=== PATIENT | female | born 1945 | race Caucasian/White ===

== ENCOUNTER 2019-06-26 12:55 | Inpatient (IN) | payer BC ==
--- OUTSIDE RECORDS SUMMARY | 2019-06-26 13:09 | XMS REPORT | Continuity of Care Document ---
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 Onset: 06/20/2015 Presbyopia Walter River O.D. Onset: 06/20/2015 Regular astigmatism Walter River O.D. Onset: 06/20/2015 Hypermetropia Walter River O.D. Onset: 06/20/2015 Benign neoplasm of choroid Walter River O.D. Onset: 06/20/2015 Drusen of optic disc Walter River O.D. Onset: 06/20/2015 Social History Type Date Description Comments Sex Unknown ETOH Use Never used alcohol Tobacco Use Start: Unknown Patient has never smoked Smoking Status Reviewed: 05/27/19 Patient has never smoked Allergies, Adverse Reactions, Alerts Active Allergies Reaction Severity Comments Date NKDA 06/20/2015 Metals 06/20/2015 Medications Active Medications SIG Qnty Indications Ordering Provider Date Xarelto Take 1 Tablet By Unknown 20mg Tablets Mouth Every Day With Food Methotrexate Take 4 Tablets By Unknown 2.5mg Mouth Every Week Tablets Folic Acid Take 1 Tablet By Unknown 1mg Tablets Mouth Every Day Prevident 5000 Dry Unknown Mouth 1.1% Gel Immunizations Description No Information Available Vital Signs Date Vital Result Comment 05/27/2019 3:14pm Intraocular Pressure Right Eye 17 mmHg Intraocular Pressure Left Eye 17 mmHg 06/20/2015 1:54pm Intraocular Pressure Right Eye 14 mmHg Intraocular Pressure Left Eye 14 mmHg Results Description No Information Available Procedures Date Code Description Status 05/27/2019 29991 Oct, Optic Nerve Completed 05/27/2019 00639 Gonioscopy Completed 05/27/2019 09247 Refraction Completed 05/27/2019 32069 Eye Exam New Comprehensive Completed Medical Devices Description No Information Available Encounters Description No Information Available Assessments Date Code Description Provider 05/27/2019 H25.813 Combined forms of age-related cataract, Walter Jauregui, OD bilateral 05/27/2019 H40.033 Anatomical narrow angle, bilateral Walter Jauregui, OD 05/27/2019 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
--- OUTSIDE RECORDS SUMMARY | 2019-06-26 13:09 | XMS REPORT | Continuity of Care Document ---
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 Onset: 12/13/2014 Polymyalgia rheumatica Terrell Lombardo M.D. Onset: 12/13/2014 Pulmonary embolism Terrell Lombardo M.D. Onset: 12/13/2014 Social History Type Date Description Comments Sex Unknown ETOH Use Denies alcohol use Tobacco Use Start: Unknown End: Patient is a former smoker quit 2009 Unknown Smoking Status Reviewed: 05/18/19 Patient is a former smoker quit 2009 Exercise Type/Frequency Exercises sporadically Allergies, Adverse Reactions, Alerts Description No Known Drug Allergies Medications Active Medications SIG Qnty Indications Ordering Provider Date Methotrexate Take 4 Tablets 60tabs Z79.899 Lyndsay Flores, 06/19/2018 2.5mg By Mouth Every [employer] Tablets Week M06.09 Folic Acid Take 1 Tablet By 90tabs Z79.899 Lyndsay Flores, 01/09/2016 1mg Tablets Mouth Every Day [employer] Melatonin as directed Unknown 10mg Multi Vitamin Daily Daily (patient not Unknown taking at this time) Acetaminophen 1-2 by mouth twice Unknown 500mg a day as needed Capsules Turmeric Curcumin as directed Unknown Capsules Xarelto Take 1 Tablet By Unknown 20mg Tablets Mouth Every Day With Food CBD Oil cbd oil 1 or 2 Unknown drops topically daily for joint pain Zantac 150 Maximum 1 by mouth twice a Unknown Strength day 150mg Tablets History Medications Prednisone take 1 tablets 14tabs M06.09 Lyndsay Flores, 02/10/2019 - 5mg once daily once [employer] 05/17/2019 Tablets daily as needed Immunizations Description No Information Available Vital Signs Date Vital Result Comment 05/18/2019 10:07am Height 61.5 inches 5'1.50" Weight 177.38 lb Heart Rate 58 /min BP Systolic 139 mmHg BP Diastolic 65 mmHg Body Temperature 98.0 F O2 % BldC Oximetry 97 % BMI (Body Mass Index) 33.0 kg/m2 02/10/2019 12:56pm Height 61.5 inches 5'1.50" Weight 183.00 lb Heart Rate 72 /min BP Systolic Sitting 116 mmHg BP Diastolic Sitting 70 mmHg O2 % BldC Oximetry 97 % BMI (Body Mass Index) 34.0 kg/m2 Results Test Date Facility Test Result H/L Range Note CBC Auto 02/27/2019 [facility] White Blood 8.5 10^3/uL Normal 3.5-10.[address] [place] [address] [phone] Red Blood Count 4.09 10^6/uL Normal 3.70-4.87 Hemoglobin 13.3 g/dL Normal 12.0-16.0 Hematocrit 39 % Normal 35-47 Mean Corpuscular Volume 95 fL Normal 80-97 Mean Corpuscular Hemoglobin 32 pg High 27-31 Mean Corpuscular HGB Conc 34 g/dL Normal 31-36 Red Cell Distribution Width 15 % Normal 10-15 Platelet Count 544 10^3/uL High 150-450 Mean Platelet Volume 8.8 fL Normal 7.4-10.4 Abs Neutrophils 6.1 10^3/uL Normal 1.5-7.7 Abs Lymphocytes 1.8 10^3/uL Normal 1.0-4.8 Abs Monocytes 0.5 10^3/uL Normal 0-0.8 Abs Eosinophils 0.1 10^3/uL Normal 0-0.6 Abs Basophils 0.1 10^3/uL Normal 0-0.2 Abs Nucleated RBC 0.0 10^3/uL Granulocyte % 71.5 % Lymphocyte % 21.1 % Monocyte % 5.7 % Eosinophil % 0.6 % Basophil % 1.1 % Nucleated Red Blood Cells % 0.0 Comp Metabolic 02/27/2019 [facility] Sodium 139 mmol/L Normal 135-[address] [place] [address] [phone] Chloride 105 mmol/L Normal 101-111 Co2 Carbon Dioxide 25 mmol/L Normal 22-32 Glucose 90 mg/dL Normal 70-100 Blood Urea Nitrogen 23 mg/dL Normal 6-24 Creatinine 0.77 mg/dL Normal 0.51-0.95 BUN/Creatinine Ratio 29.9 High 8-20 Calcium 9.7 mg/dL Normal 8.6-10.3 Total Protein 6.7 g/dL Normal 6.4-8.9 Albumin 3.9 g/dL Normal 3.2-5.2 Globulin 2.8 g/dL Normal 2-4 Albumin/Globulin Ratio 1.4 Normal 1-3 Total Bilirubin 0.70 mg/dL Normal 0.2-1.0 Alkaline Phosphatase 71 U/L Normal 34-104 Alt 22 U/L Normal 7-52 Ast 18 U/L Normal 13-39 Egfr Non- 73.7 >60 Egfr 89.2 >60 1 Potassium 5.2 mmol/L High 3.5-5.0 Anion Gap 9 mmol/L Normal 2-11 Laboratory test 02/27/2019 [facility] Erythrocyte Sed 43 mm/Hr High 0-[address] [place] [address] [phone] C Reactive Protein 22.72 mg/L High <8.01 CBC Auto 02/10/2019 [facility] White Blood 6.6 10^3/uL Normal 3.5-10.[address] [place] [address] [phone] Red Blood Count 4.37 10^6/uL Normal 3.70-4.87 Hemoglobin 14.1 g/dL Normal 12.0-16.0 Hematocrit 41 % Normal 35-47 Mean Corpuscular Volume 94 fL Normal 80-97 Mean Corpuscular Hemoglobin 32 pg High 27-31 Mean Corpuscular HGB Conc 34 g/dL Normal 31-36 Red Cell Distribution Width 15 % Normal 10-15 Platelet Count 294 10^3/uL Normal 150-450 Mean Platelet Volume 9.0 fL Normal 7.4-10.4 Abs Neutrophils 5.1 10^3/uL Normal 1.5-7.7 Abs Lymphocytes 0.9 10^3/uL Low 1.0-4.8 Abs Monocytes 0.6 10^3/uL Normal 0-0.8 Abs Eosinophils 0.0 10^3/uL Normal 0-0.6 Abs Basophils 0.1 10^3/uL Normal 0-0.2 Abs Nucleated RBC 0.0 10^3/uL Granulocyte % 76.9 % Lymphocyte % 13.7 % Monocyte % 8.4 % Eosinophil % 0.1 % Basophil % 0.9 % Nucleated Red Blood Cells % 0.0 Laboratory test 02/10/2019 [facility] Creatine 37 U/L Normal 10-[address] Kinase(CK) [place] [address] [phone] Comp Metabolic 02/10/2019 [facility] Sodium 136 Normal 135- [address] mmol/[place] [address] [phone] Potassium 4.4 mmol/L Normal 3.5-5.0 Chloride 102 mmol/L Normal 101-111 Co2 Carbon Dioxide 25 mmol/L Normal 22-32 Anion Gap 9 mmol/L Normal 2-11 Glucose 114 mg/dL High 70-100 Blood Urea Nitrogen 24 mg/dL Normal 6-24 Creatinine 0.81 mg/dL Normal 0.51-0.95 BUN/Creatinine Ratio 29.6 High 8-20 Calcium 9.4 mg/dL Normal 8.6-10.3 Total Protein 6.7 g/dL Normal 6.4-8.9 Albumin 3.9 g/dL Normal 3.2-5.2 Globulin 2.8 g/dL Normal 2-4 Albumin/Globulin Ratio 1.4 Normal 1-3 Total Bilirubin 1.00 mg/dL Normal 0.2-1.0 Alkaline Phosphatase 74 U/L Normal 34-104 Alt 31 U/L Normal 7-52 Ast 36 U/L Normal 13-39 Egfr Non- 69.5 >60 Egfr 84.1 >60 2 Laboratory test 02/10/2019 [facility] Erythrocyte Sed 23 mm/Hr Normal 0-[address] [place] [address] [phone] C Reactive Protein 107.98 mg/L High <8.01 1 Because ethnic data is not always readily available, this report includes an eGFR for both -Americans and non- Americans. The National Kidney Disease Education Program (NKDEP) does not endorse the use of the MDRD equation for patients that are not between the ages of 18 and 70, are , have extremes of body size, muscle mass, or nutritional status, or are non- or non-. According to the National Kidney Foundation, irrespective of diagnosis, the stage of the disease is based on the level of kidney function: Stage Description GFR(mL/min/1.73 m(2)) 1 Kidney damage with normal or decreased GFR 90 2 Kidney damage with mild decrease in GFR 60-89 3 Moderate decrease in GFR 30-59 4 Severe decrease in GFR 15-29 5 Kidney failure <15 (or dialysis) 2 Because ethnic data is not always readily available, this report includes an eGFR for both -Americans and non- Americans. The National Kidney Disease Education Program (NKDEP) does not endorse the use of the MDRD equation for patients that are not between the ages of 18 and 70, are , have extremes of body size, muscle mass, or nutritional status, or are non- or non-. According to the National Kidney Foundation, irrespective of diagnosis, the stage of the disease is based on the level of kidney function: Stage Description GFR(mL/min/1.73 m(2)) 1 Kidney damage with normal or decreased GFR 90 2 Kidney damage with mild decrease in GFR 60-89 3 Moderate decrease in GFR 30-59 4 Severe decrease in GFR 15-29 5 Kidney failure <15 (or dialysis) Procedures Date Code Description Status 05/13/2018 82633591 Colonoscopy Completed 10/07/2017 367190456 Bone Mineral Density Test Completed Medical Devices Description No Information Available Encounters Type Date Location Provider Dx Diagnosis Office Visit 02/10/2019 Rheumatology Lyndsay Flores, M06.09 Rheumatoid 1:[facility] [employer] arthritis w/o rheumatoid factor, multiple sites M85.80 Oth disrd of bone density and structure, unspecified site M76.30 Iliotibial band syndrome, unspecified leg G89.4 Chronic pain syndrome 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 Assessments Date Code Description Provider 05/18/2019 M06.09 Rheumatoid arthritis without rheumatoid factor, Lyndsay Flores, [employer] multiple sit 05/18/2019 M25.561 Pain in right knee Zsofia Mark, [employer] 05/18/2019 M76.30 Iliotibial band syndrome, unspecified leg Zsofia Mark, [employer] 05/18/2019 M70.61 Trochanteric bursitis, right hip Zsofia Mark, [employer] 05/18/2019 M85.80 Other specified disorders of bone density and Mableofibranden Flores, [employer] structure, uns 05/18/2019 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 Mableofia Mark, [employer] 02/10/2019 M06.09 Rheumatoid arthritis without rheumatoid factor, Zsofia Mark, [employer] multiple sit 02/10/2019 M85.80 Other specified disorders of bone density and Zsofia Mark, [employer] structure, uns 02/10/2019 M76.30 Iliotibial band syndrome, unspecified leg Mableofia Mark, [employer] 02/10/2019 G89.4 Chronic pain syndrome Mableofia Mark, [employer] 02/10/2019 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05/18/2019 - GHISLAINE DuckworthPM06.09 Rheumatoid arthritis without rheumatoid factor, multiple sitComments:Will get labs today.Your arthritis seems to be symptomatically well controlled at this time.Continuewith present medication regimePlease call the office if you develop any sign or symptoms of infection or acute change in your health.Follow up:3 month labs today and oslbjN25.561 Pain in right kneeM76.30 Iliotibial band syndrome, unspecified legNew Therapy:Physical TherapyComments:Please start PT for thigh Iliotibial BandM70.61 Trochanteric bursitis, right hipM85.80 Other specified disorders of bone density and structure, unsComments:For your osteopenia: Supplements: Calcium: The National Osteoporosis Foundation recommends 1,000 milligrams (shortened as mg) per day for most adults and 1,200 mg per day for women over age 50 or men over age 70.Vitamin D. Get adequate amounts of vitamin D, which is important to help absorption of calcium from foods you eat. The recommended daily dose is 400 800 International Units ( called IU) for adults younger than age 50, and 800 1,000 IU for those age 50 and older. (These are the current guidelines from the National Osteoporosis Foundation.) The patient should also periodically have the level of vitamin D checked.Physical activity. 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
--- OUTSIDE RECORDS SUMMARY | 2019-06-26 13:09 | XMS REPORT | Continuity of Care Document ---
:1945 External Reference #:[id number] Author Name Walter River O.D. 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 Onset: 06/20/2015 Presbyopia Walter River O.D. Onset: 06/20/2015 Regular astigmatism Walter River O.D. Onset: 06/20/2015 Hypermetropia aWlter River O.D. Onset: 06/20/2015 Benign neoplasm of [...] Available Procedures Date Code Description Status 05/27/2019 88341 Oct, Optic Nerve Completed 05/27/2019 86844 Gonioscopy Completed 05/27/2019 44240 Refraction Completed 05/27/2019 05314 Eye Exam New Comprehensive Completed Medical Devices [...]
[2019-06-26 13:20] LABS: ABS Basophils 0.1 10^3/ul (0-0.2); ABS Eosinophils 0.1 10^3/ul (0-0.6); ABS Lymphocytes 1.2 10^3/ul (1.0-4.8); ABS Monocytes 0.5 10^3/ul (0-0.8); Eosinophil % 1.2 %; Hematocrit 41 % (35-47); Hemoglobin 13.6 g/dL (12.0-16.0); Lymphocyte % 13.8 %; Mean Corpuscular HGB Conc 33 g/dL (31-36); Mean Corpuscular Hemoglobin 32 pg (27-31); Mean Corpuscular Volume 96 fL (80-97); Mean Platelet Volume 8.4 fL (7.4-10.4); Platelet Count 511 10^3/uL (150-450); Red Cell Distribution Width 15 % (10-15)
[2019-06-26 13:31] LABS: INR 2.04 (0.82-1.09)
[2019-06-26 13:37] LABS: ALT 9 U/L (7-52); AST 13 U/L (13-39); Albumin 4.1 g/dL (3.2-5.2); Albumin/Globulin Ratio 1.5 (1-3); Alkaline Phosphatase 63 U/L (34-104); Anion Gap 7 mmol/L (2-11); BUN/Creatinine Ratio 28.9 (8-20); Blood Urea Nitrogen 24 mg/dL (6-24); CO2 Carbon Dioxide 27 mmol/L (22-32); Calcium 9.3 mg/dL (8.6-10.3); Chloride 105 mmol/L (101-111); EGFR African American 81.5 (>60); EGFR Non-African American 67.4 (>60); Globulin 2.7 g/dL (2-4); Glucose 93 mg/dL (70-100); Potassium 4.7 mmol/L (3.5-5.0); Sodium 139 mmol/L (135-145); Total Protein 6.8 g/dL (6.4-8.9)
[2019-06-26 13:46] LABS: Troponin I 0.06 ng/mL (<0.04)
[2019-06-26] MEDS ORDERED: Aspirin TAB* 325 MG PO ONE (14:32)
--- NOTE | 2019-06-26 15:19 | ED ---
Complex/Multi-Sys Presentation - HPI Summary HPI Summary: Patient is a 74 y/o F presenting to [facility] with complaints of chest pain, generalized weakness, and feeling near syncopal. She notes that she has been having episodes of chest pain with arm and jaw ache for the past month. She states that typical episodes last around 10-20 minutes. Patient states that on certain days she can have 7-8 episodes. Patient states that she was evaluated by PCP and claims that she was told that her issues were likely "reflux". However, today, 06/26/2019, the patient was walking around at work when she had onset of chest pain with generalized weakness and feeling near syncopal. She called PCP and was advised to come to ED for evaluation. Patient states that she had the chest pain still when she got to [facility], but states that the chest pain is no longer present while in ED room. PMHx of HTN, HLD, diabetes, CAD is denied. However, she endorses Hx of PE. FMHx of cardiac disease in father is noted. Patient is on Xarelto. Pt does not report any fever, chills, erythema of eyes, sore throat, SOB, cough, abdominal pain, N/V, dysuria, hematuria, myalgia , edema, rash, or dizziness. On triage, pain is rated 3/10, nothing is noted to aggravate/alleviate Sx. Home medications and allergies are reviewed. - History Of Current Complaint Chief Complaint: EDChestPainROMI Time Seen by Provider: 06/26/19 13:10 Hx Obtained From: Patient Onset/Duration: Resolved Timing: Intermittent, Lasting: Severity Currently: None Severity Initially: Mild Location: Pain At: - chest Aggravating Factor(s): nothing Alleviating Factor(s): nothing Associated Signs And Symptoms: Positive: Weakness - generalized, Syncope - near , Chest Pain, Other - positive - chest pain, generalized weakness, and feeling near syncopal; negative - fever, chills, erythema of eyes, sore throat, SOB, cough, abdominal pain, N/V, dysuria, hematuria, myalgia, edema, rash, or dizziness. Negative: Dizziness, SOB, Cough, Edema, Nausea, Vomiting, Fever - Allergies/Home Medications Allergies/Adverse Reactions: Allergies Allergy/AdvReac Type Severity Reaction Status Date / Time No Known Allergies Allergy Verified 05/13/18 14:20 PMH/Surg Hx/FS Hx/Imm Hx Endocrine/Hematology History: Denies: Hx Diabetes, Hx Thyroid Disease Cardiovascular History: Reports: Hx Rheumatic Fever Denies: Hx Hypertension, Hx Pacemaker/ICD Respiratory History: Reports: Hx Pulmonary Embolism Denies: Hx Asthma, Hx Chronic Obstructive Pulmonary Disease (COPD) GI History: Denies: Hx Ulcer History: Denies: Hx Renal Disease Musculoskeletal History: Reports: Hx Arthritis, Hx Osteoporosis Sensory History: Reports: Hx Contacts or Glasses Denies: Hx Hearing Aid Opthamlomology History: Reports: Hx Contacts or Glasses Neurological History: Reports: Hx Headaches - prednisone related Psychiatric History: Denies: Hx Panic Disorder - Cancer History Hx Chemotherapy: No Hx Radiation Therapy: No - Surgical History Surgery Procedure, Year, and Place: benign breast tumor removed 1963 Hx Anesthesia Reactions: No Infectious Disease History: No Infectious Disease History: Denies: Hx Clostridium Difficile, Hx Hepatitis, Hx Human Immunodeficiency Virus (HIV), Hx of Known/Suspected MRSA, Hx Shingles, Hx Tuberculosis, Hx Known/ Suspected VRE, Hx Known/Suspected VRSA, History Other Infectious Disease, Traveled Outside the [place] in Last 30 Days - Family History Known Family History: Positive: Cardiac Disease - Social History Alcohol Use: None Substance Use Type: Reports: None Substance Use Comment - Amount & Last Used: pain meds for back Smoking Status (MU): Former Smoker Type: Cigarettes Length of Time of Smoking/Using Tobacco: SMOKED 10 YEARS,QUIT FOR 10 RESTARTED FOR 10 YEARS ETC. Have You Smoked in the Last Year: No Review of Systems Positive: Fatigue - generalized weakness . Negative: Fever, Chills Negative: Erythema Negative: Sore Throat Positive: Chest Pain Negative: Shortness Of Breath, Cough Negative: Abdominal Pain, Vomiting, Nausea Negative: dysuria, hematuria Negative: Myalgia, Edema Negative: Rash Neurological: Other - negative - dizziness Positive: Syncope - near syncopal All Other Systems Reviewed And Are Negative: Yes Physical Exam - Summary Physical Exam Summary: Constitutional: Well-developed, Well-nourished, Alert. (-) Distressed Skin: Warm, Dry HENT: Normocephalic; Atraumatic Eyes: Conjunctiva normal Neck: Musculoskeletal ROM normal neck. (-) JVD, (-) Stridor, (-) Tracheal deviation Cardio: Rhythm regular, rate normal, Heart sounds normal; Intact distal pulses; The pedal pulses are 2+ and symmetric. Radial pulses are 2+ and symmetric. (-) Murmur Pulmonary/Chest wall: Effort normal. (-) Respiratory distress, (-) Wheezes, (-) Rales Abd: Soft, (-) tenderness, (-) Distension, (-) Guarding, (-) Rebound Musculoskeletal: (-) Edema Lymph: (-) Cervical adenopathy Neuro: Alert, Oriented x3 Psych: Mood and affect Normal Triage Information Reviewed: Yes Vital Signs On Initial Exam: Initial Vitals Temp Pulse Resp BP Pulse Ox 97.4 F 57 16 141/63 100 06/26/19 12:55 06/26/19 12:55 06/26/19 12:55 06/26/19 12:55 06/26/19 12:55 Vital Signs Reviewed: Yes Procedures - Sedation Patient Received Moderate/Deep Sedation with Procedure: No Diagnostics - Vital Signs Vital Signs Temp Pulse Resp BP Pulse Ox 06/26/19 12:55 97.4 F 57 16 141/63 100 - Laboratory Lab Results: Lab Results 06/26/19 06/26/19 06/26/19 Range/Units 13:09 13:09 13:09 WBC 9.0 (3.5-10.8) 10^3/uL RBC 4.30 (3.70-4.87) 10^6 /uL Hgb 13.6 (12.0-16.0) g/dL Hct 41 (35-47) % MCV 96 (80-97) fL MCH 32 H (27-31) pg MCHC 33 (31-36) g/dL RDW 15 (10-15) % Plt Count 511 H (150-450) 10^3/uL MPV 8.4 (7.4-10.4) fL Neut % (Auto) 78.2 % Lymph % (Auto) 13.8 % [place] % (Auto) 6.0 % Eos % (Auto) 1.2 % Baso % (Auto) 0.8 % Absolute Neuts (auto) 7.0 (1.5-7.7) 10^3/ul Absolute Lymphs (auto) 1.2 (1.0-4.8) 10^3/ul Absolute Monos (auto) 0.5 (0-0.8) 10^3/ul Absolute Eos (auto) 0.1 (0-0.6) 10^3/ul Absolute Basos (auto) 0.1 (0-0.2) 10^3/ul Absolute Nucleated RBC 0.0 10^3/ul Nucleated RBC % 0.0 INR (Anticoag Therapy) 2.04 H (0.82-1.09) Sodium 139 (135-145) mmol/L Potassium 4.7 (3.5-5.0) mmol/L Chloride 105 (101-111) mmol/L Carbon Dioxide 27 (22-32) mmol/L Anion Gap 7 (2-11) mmol/L BUN 24 (6-24) mg/dL Creatinine 0.83 (0.51-0.95) mg/dL Est GFR ( Amer) 81.5 (>60) Est GFR (Non-Af Amer) 67.4 (>60) BUN/Creatinine Ratio 28.9 H (8-20) Glucose 93 (70-100) mg/dL Calcium 9.3 (8.6-10.3) mg/dL Total Bilirubin 0.70 (0.2-1.0) mg/dL AST 13 (13-39) U/L ALT 9 (7-52) U/L Alkaline Phosphatase 63 (34-104) U/L Troponin I 0.06 H* (<0.04) ng/mL Total Protein 6.8 (6.4-8.9) g/dL Albumin 4.1 (3.2-5.2) g/dL Globulin 2.7 (2-4) g/dL Albumin/Globulin Ratio 1.5 (1-3) Result Diagrams: 06/26/19 13:09 06/26/19 13:09 Lab Statement: Any lab studies that have been ordered have been reviewed, and results considered in the medical decision making process. - EKG 1259 Cardiac Rate: Bradycardia - rate of 59 BPM EKG Rhythm: Sinus Bradycardia Summary of EKG Findings: EKG showed sinus bradycardia with rate of [address] elevations in inferior leads. This EKG was reviewed and interpreted by Dr. Mendes. 1530 Cardiac Rate: Bradycardia - rate of 50 BPM EKG Rhythm: Sinus Bradycardia Summary of EKG Findings: EKG showed sinus bradycardia with rate of 50 BPM, no STEMI. This EKG was reviewed and interpreted by Dr. Mendes. Complex Multi-Symp Course/Dx Course Of Treatment: Patient is a 74 y/o F presenting to [facility] with complaints of chest pain, generalized weakness, and feeling near syncopal. She notes that she has been having episodes of chest pain with arm and jaw ache for the past month. She states that typical episodes last around 10-20 minutes. Patient states that on certain days she can have 7-8 episodes. However, today, 06/26/2019 , the patient was walking around at work when she had onset of chest pain with generalized weakness and feeling near syncopal. Patient states that she had the chest pain still when she got to , but states that the chest pain is no longer present while in ED room. Physical exam is unremarkable. First EKG showed sinus bradycardia with rate of [address] elevations in inferior leads. Bloodwork was obtained. First trop was 0.06. MCH 32, Plt count 511, INR 2.04, BUN/creatinine ratio 28.9. During ED course, patient received 325 mg PO. Second EKG showed sinus bradycardia with rate of 50 BPM, no STEMI. Patient's case was discussed with Dr. Suárez, Dr. Suárez accepts for admission. - Diagnoses Provider Diagnoses: NSTEMI (non-ST elevated myocardial infarction) - Physician Notifications Discussed Care Of Patient With: Sera Suárez Time Discussed With Above Provider: 15:34 Instructed by Provider To: Other - Patient's case was discussed with Dr. Suárez , Dr. Suárez accepts for admission. - Critical Care Time Critical Care Time: 30-74 min - 45 minutes CCT Discharge ED - Sign-Out/Discharge Documenting (check all that apply): Patient Departure - admit - Discharge Plan Condition: Stable Disposition: ADMITTED TO [facility] Referrals: Greta Ponce MD [Primary Care Provider] - - Attestation Statements Document Initiated by Scribe: Yes Documenting Scribe: JOY JHAVERI Provider For Whom Scribe is Documenting (Include Credential): VANESA MENDES MD Scribe Attestation: JOY De La Rosa, scribed for VNAESA MENDES MD on 06/26/19 at 1743. Status of Scribe Document: Ready
--- NOTE | 2019-06-26 16:53 | CONSULT ---
Subjective Date of Service: 06/26/19 Interval History: Date of admission and consult 06/26/2019 PCP: Dr. Sarmiento CC: Chest discomfort Reason for consult: Unstable angina HPI: Anahi Contreras is a 74 year old woman who for last month has been having central chest discomfort radiating across both shoulders associated with b/l jaw ache. It usually lasts about 20 minutes, sometimes at rest, often associated this with stress. Today walked across street with friend, got to store, developed same symptoms but worse and was lightheaded and diaphoretic. Symptoms resolved without intervention. Drove self to ER asymptomatic. Had chest discomfort for less than 20 minutes while here with inferior < [address] elevation of the inferior leadss. Now totally asymptomatic. Has been under a lot of stress recently. No kidney issues, no iodine allergy, no bleeding, anemia , PUD or transfusions. SHe is currently entirely asymptomatic. No syncope. 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 First 2008 unprovoked 6 months coumadin, then recurred in 2010 now on xarelto Seronegative RA TIA 04/2015 ALLERGIES: No known drug allergies. FAMILY HISTORY: The patient's father at age 30 of cardiac complications of rheumatic fever. SOCIAL HISTORY: The patient was a smoker from age 16 until 64 up to 2 packs a day. She states that since she had her PE, she quit smoking. She denies alcohol or drug use. She works at [employer]. Surrogate decision maker is her , Riki Contreras, phone number is [phone]. Medications Active Medications: Aspirin (Aspirin Ec Tab*) 81 mg PO DAILY [facility] Rivaroxaban (Xarelto(*)) 20 mg PO DAILY [facility] Home Medications: Acetaminophen [Acetaminophen Extra Strength] 1,000 mg PO BID PRN 04/14/18 [ History Confirmed 06/26/19] Folic Acid TAB* [Folvite TAB*] 1 mg PO DAILY 04/14/18 [History Confirmed ] Methotrexate TAB* 15 mg PO WEEKLY 04/14/18 [History Confirmed 06/26/19] Rivaroxaban TAB(*) [Xarelto 20 mg] 20 mg PO DAILY 04/14/18 [History Confirmed ] Review of Systems - Measurements Intake and Output: Intake and Output Last 24 Hours 06/24/19 06/25/19 06/26/19/02/19 06:59 06:59 06:59 06:59 Weight 178 lb - Review of Systems Constitutional Symptoms: Negative: Weight Gain, Weight Loss, Weakness, Fever, Night Sweats Dermatology: Negative: Rash, Skin Lesions HEENT: Negative: Change in Hearing, Vertigo Eyes: Negative: Change in Vision, Double Vision Thyroid: Negative: Weight Loss, Weight Gain Pulmonary: Negative: Respiratory Distress, Exercise Intolerance Cardiology: Positive: Chest Pain, Faintness Negative: Palpitations, Edema, Syncope, Claudication, Paroxysmal Nocturnal Dyspnea, Orthopnea Gastroenterology: Negative: Blood in Stools, Haematemesis, Melena Genital - Urinary: Negative: Dysuria, Hematuria Musculoskeletal: Negative: Joint Pain, Joint Stiffness Endocrinology: Negative: Polydipsia, Polyuria Hematologic/Lymphatic: Positive: Use of Anticoagulant Negative: Use of Antiplatelet Drugs Neurology: Negative: Hx of Stroke\TIA, Hx Seizures Psychiatry: Negative: Unusual Anxiety, Suicidal Ideation Allergic/Immunologic: Negative: Hx HIV, Immunocompromise Review of Systems Statement: All other review of systems negative, unless stated above. Objective Vital Signs: Temp Pulse Resp BP Pulse Ox 97.4 F 57 16 141/63 100 06/26/19 12:55 06/26/19 12:55 06/26/19 12:55 06/26/19 12:55 06/26/19 12:55 Appearance: nad, pleasant Ears/Nose/Mouth/Throat: Clear Oropharnyx, Mucous Membranes Moist Neck: NL Appearance and Movements; NL JVP, Trachea Midline Respiratory: Symmetrical Chest Expansion and Respiratory Effort, Clear to Auscultation Cardiovascular: NL Sounds; No Murmurs; No JVD, RRR, No Edema Abdominal: NL Sounds; No Tenderness; No Distention Extremities: No Edema Skin: No Rash or Ulcers Neurological: Alert and Oriented x 3 Laboratory Results: 06/26/19 13:09 06/26/19 13:09 INR (Anticoag Therapy) 2.04 (0.82-1.09) H 06/26/19 13:09 Total Bilirubin 0.70 mg/dL (0.2-1.0) 06/26/19 13:09 AST 13 U/L (13-39) 06/26/19 13:09 ALT 9 U/L (7-52) 06/26/19 13:09 Alkaline Phosphatase 63 U/L (34-104) 06/26/19 13:09 Total Protein 6.8 g/dL (6.4-8.9) 06/26/19 13:09 Albumin 4.1 g/dL (3.2-5.2) 06/26/19 13:09 Globulin 2.7 g/dL (2-4) 06/26/19 13:09 Albumin/Globulin Ratio 1.5 (1-3) 06/26/19 13:09 06/26/19 06/26/19 13:09 16:12 Troponin I 0.06 H* 0.06H* Diagnostic Imaging: cxr interpretation pending, reviewed did not appreciate acute pathology EKG Data: ekg today nsr 60 bpm, inferior < [address] elevation wtih st depression v2/v3. On repeat ekg st changes essentially normalized with inferior t wave changes. Findings are new since 04/26/2019 Assessment/Plan 74 year old woman admitted with unstable angina, now pain free without hemodynamic instability, arrhythmias, recurrent angina or CHF. Cause with age and tobacco use history is most likely unstable plaque of atherosclerotic coronary artery disease although I think other pathology with this presentation is possible such as vasospasm on non-obstructive plaque or even stress cardiomyopathy is possible. Cardiac catheterization with intent for revascularization recommended. Risks, benefits and alternatives discussed and patient wishes to proceed. - Check echo - Last dose xarelto this AM. Hold 36 hours and start lovenox tomorrow evening therapeutic (ordered) - Start plavix 600 mg po daily and 75 mg po daily tomorrow (ordered) - Continue aspirin 81 mg po daily for now - Start lipitor 80 mg po daily - Start isordil 10 mg po qid - Above ordered - Would use PRN SL NTG for recurrent symptoms - As long as patient remains clinically stable will allow 48 hour xarelto washout and plan for cardiac catheterization Saturday06/29/2019 (Discussed with Dr. Titus). Taking into consideration [place] AF-PCI (in which most patients received plavix) and [facility] Choice study, if PCI is ultimately performed I think xarelto 15 mg po daily with plavix 75 mg po daily and as short of aspirin course as possible would be reasonable. Thank you for allowing me to participate in the cardiovascular care of this patient. Please do not hesitate to contact me with questions or concerns.
[2019-06-26] MEDS ORDERED: Isosorbide Mononitrate ER TAB* 30 MG PO SCH (17:00)
[2019-06-26] MEDS ORDERED: Clopidogrel TAB* 300 MG PO ONE (17:10)
[2019-06-26 17:18] LABS: Troponin I 0.06 ng/mL (<0.04)
[2019-06-26] MEDS: Isosorbide Dinitrate TAB* 10 MG PO SCH ×2 (18:12→21:29)
--- NOTE | 2019-06-26 18:53 | HP ---
CC: Dr. Greta Sarmiento; Dr. Dilan Walker HISTORY AND PHYSICAL: DATE OF ADMISSION: 06/26/19 PRIMARY CARE PROVIDER: Dr. Greta Sarmiento. CONSULTING CHAIN BUILDER: Dr. Dilan Walker. CHIEF COMPLAINT: Chest pain. HISTORY OF PRESENT ILLNESS: Ms. Contreras is a 74-year-old female with a past medical history of rheu matoid arthritis, recurrent pulmonary embolism, who presents to the emergency room with complaints of chest pain. 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 She states that those are not related to exercise and she would usually feel them during moments o f stress. She states today she walked from her office to [facility] and during the walk, she developed retroster nal chest pain, pressure-like, radiating to her jaw associated with mild shortness of breath and diap horesis. She continued to walk and felt like she was going to pass out. She sat down, rested and th en contacted her primary care provider's office that recommended she come to the emergency room for f urther evaluation. She states that while she was sitting and resting, she became diaphoretic, but at the time of my evaluation in the emergency room, she states that she is feeling well. She denies nausea, vomiting, diarrhea, or urinary complaints. She describes brief episodes of palpit ations that she also associated with stress. During my interview, the patient had frequent PVCs and she was not aware. PAST MEDICAL HISTORY: 1. Rheumatoid arthritis. The patient was initially diagnosed with polymyalgia rheumatica and treate d with prednisone, but as her symptoms progressed, she was later on diagnosed with seronegative rheum atoid arthritis and being stable on methotrexate. 2. GERD. 3. History of pulmonary embolism in 2008. The patient had a pulmonary embolism in 2008. She states it was unprovoked and no etiology was found. She was treated with warfarin for 6 months and when e medication was discontinued she had another episode of pulmonary embolism. As per Rheumatology not e, the patient had negative antiphospholipid and lupus anticoagulant and she is now being treated wit h Xarelto. MEDICATION LIST: 1. Acetaminophen 1000 mg p.o. b.i.d. as needed for pain. 2. Folic acid 1 mg p.o. daily. 3. Methotrexate 15 mg p.o. weekly. 4. Rivaroxaban 20 mg p.o. daily. ALLERGIES: No known drug allergies. FAMILY HISTORY: The patient's father at age 30 of cardiac complications of rheumatic fever. SOCIAL HISTORY: The patient was a smoker from age 16 until 64 up to 2 packs a day. She states that s bertha she had her PE, she quit smoking. She denies alcohol or drug use. She works at [employer]. Trey gomez decision maker is her , Riki Contreras, phone number is [phone]. PHYSICAL EXAMINATION GENERAL: The patient is a pleasant, elderly lady, sitting up in the ED stretcher, in no acute distre ss. VITAL SIGNS: Temperature 97.4, heart rate is 57, respiratory rate is 16, oxygen saturation is 100% o n room air, blood pressure is 141/63. HEENT: Pupils are equal. Moist mucous membranes. CHEST: Breath sounds present bilaterally with no added sounds. CVS: Normal S1, S2. Regular rate and rhythm. ABDOMEN: Soft, nontender, nondistended. EXTREMITIES: No edema. NEURO: She is alert and oriented x3. Able to move all 4 extremities. DIAGNOSTIC STUDIES/LAB DATA: The patient had a CBC that showed a WBC of 9.0, hemoglobin of 13.6, he matocrit of 41, platelets of 411 with 78% neutrophils. INR is 2.04. Chemistry showed a sodium of 13 9, potassium of 4.7, chloride of 105, bicarb of 27, BUN of 24, creatinine of 0.83, glucose of 93, wali cium is 9.3. LFTs are normal. First troponin is 0.06. No chest x-ray was done in the emergency room. EKG done on 06/26/19 at 12:55 p.m. shows sinus bradycardia at 59 beats per minute. There are minimal ST elevations in II, III and aVF and those are resolved on her followup EKG done at 1517. She has T- wave inversions in III and aVF, flat T-waves in II. Those are new when compared to her prior EKG fro April 2015. ASSESSMENT AND PLAN: Ms. Contreras is a 74-year-old female with a past medical history of rheumatoid arthritis, recurrent pulmonary embolism who presents to the emergency room with complaints of exertio nal chest pain radiating to her jaw associated with near syncope and diaphoresis, who will be admitte d for possible acute coronary syndrome. 1. Possible acute coronary syndrome. The patient's history of jaw pain over the past month is atypi wali, but the episode that she had today is concerning as it happened with exertion and was associated with near syncope and diaphoresis. She also has subtle EKG changes of the inferior wall and a minim ally elevated initial troponin. The plan is to have her admitted to the telemetry floor. We are kvng ruano to check serial troponins and she will be continued on aspirin. I am going to order an echocardio gram and a cardiology consultation was requested with Dr. Walker to decide on further management. I am going to add atorvastatin and check a fasting lipid profile. Her heart rate is already in the mid 50s, so I will not give her a beta-grecia. Further management will depend on Cardiology's recommen dations. 2. History of pulmonary embolism. We will continue her Xarelto for now, but depending on how her en zymes trend, we may need to discontinue Xarelto and give her heparin. 3. Rheumatoid arthritis. Her methotrexate is on hold for now. 4. DVT prophylaxis: The patient has a score of 5 on the DVT Prophylaxis Risk Assessment Guide and s he will be continued on Xarelto. 5. Code status is full. TIME SPENT: Approximately 60 minutes was spent with the patient's interview , medical records review, physical examination to complete this admission, more than half this time w as spent [id number] with the patient and coordination of care. [id number]/[facility] #: [id number]
[2019-06-26 19:46] LABS: Troponin I 0.06 ng/mL (<0.04)
[2019-06-26] MEDS: Atorvastatin* 80 MG TAB PO SCH (21:29)
--- NOTE | 2019-06-26 21:33 | PN ---
Hospitalist Progress Note Date of Service: 06/26/19 Unable to open CxR remotely. Will request night hospitalist look at the film.
[2019-06-26] MEDS: Melatonin 3 MG TAB PO PRN (23:34)
[2019-06-27 06:44] LABS: HDL Cholesterol 67.8 mg/dL
[2019-06-27] MEDS ORDERED: Rivaroxaban TAB(*) 20 MG TAB PO SCH (09:00)
[2019-06-27] MEDS: Clopidogrel TAB* 75 MG PO SCH (10:24)
[2019-06-27] MEDS: Aspirin EC TAB* 81 MG TAB.EC PO SCH (10:24)
[2019-06-27] MEDS: Isosorbide Dinitrate TAB* 10 MG PO SCH ×4 (10:24→22:01)
--- NOTE | 2019-06-27 12:49 | PN ---
Subjective Date of Service: 06/27/19 - CC: anginal pain Interval History: Camilo Cherry is a 74 year old woman with a 1 month hx chest discomfort radiating across both shoulders associated with b/l jaw ache brought on by emotional stress. The day of admission she additionally had a near syncopal event (walking and angina at the time). Overnight no recurrent discomfort. No c/o now. Medications Active Medications: Acetaminophen (Tylenol Tab*) 650 mg PO Q6H PRN PRN Reason: MILD PAIN or TEMP > 100.4 Aspirin (Aspirin Ec Tab*) 81 mg PO DAILY [facility] Last Admin: 06/27/19 10:24 Dose: 81 mg Atorvastatin Calcium (Lipitor*) 80 mg PO 2100 [facility] Last Admin: 06/26/19 21:29 Dose: 80 mg Clopidogrel Bisulfate (Plavix Tab*) 75 mg PO DAILY [facility] Last Admin: 06/27/19 10:24 Dose: 75 mg Enoxaparin Sodium (Lovenox(*)) 80 mg SUBCUT Q12H [facility] Isosorbide Dinitrate (Isordil Tab*) 10 mg PO QID [facility] Last Admin: 06/27/19 10:24 Dose: 10 mg Melatonin (Melatonin) 9 mg PO DAILY PRN PRN Reason: SLEEP Last Admin: 06/26/19 23:34 Dose: 9 mg Objective Vital Signs: Temp Pulse Resp BP Pulse Ox 97.5 F 56 16 141/53 95 06/27/19 07:15 06/27/19 07:15 06/27/19 08:00 06/27/19 07:15 06/27/19 07:15 Vital Signs - 12 hr Temp Pulse Resp BP Pulse Ox 06/27/19 08:00 16 06/27/19 07:15 97.5 F 56 16 141/53 95 06/27/19 03:15 97.6 F 56 16 150/53 97 Oxygen Devices in Use Now: None Appearance: nad, pleasant, lying in bed, quite overweight. Eyes: No Scleral Icterus, PERRLA Ears/Nose/Mouth/Throat: Clear Oropharnyx, Mucous Membranes Moist Neck: NL Appearance and Movements; NL JVP, Trachea Midline Respiratory: Symmetrical Chest Expansion and Respiratory Effort, Clear to Auscultation Cardiovascular: NL Sounds; No Murmurs; No JVD, RRR, No Edema Abdominal: NL Sounds; No Tenderness; No Distention Extremities: No Edema Skin: No Rash or Ulcers Neurological: Alert and Oriented x 3, NL Muscle Strength and Tone Lines/Tubes/Other Access: Clean, Dry and Intact Peripheral IV Laboratory Results: 06/26/19 13:09 06/26/19 13:09 INR (Anticoag Therapy) 2.04 (0.82-1.09) H 06/26/19 13:09 Total Bilirubin 0.70 mg/dL (0.2-1.0) 06/26/19 13:09 AST 13 U/L (13-39) 06/26/19 13:09 ALT 9 U/L (7-52) 06/26/19 13:09 Alkaline Phosphatase 63 U/L (34-104) 06/26/19 13:09 Total Protein 6.8 g/dL (6.4-8.9) 06/26/19 13:09 Albumin 4.1 g/dL (3.2-5.2) 06/26/19 13:09 Globulin 2.7 g/dL (2-4) 06/26/19 13:09 Albumin/Globulin Ratio 1.5 (1-3) 06/26/19 13:09 Triglycerides 72 mg/dL 06/27/19 05:56 Cholesterol 184 mg/dL 06/27/19 05:56 LDL Cholesterol 102 mg/dL 06/27/19 05:56 HDL Cholesterol 67.8 mg/dL 06/27/19 05:56 06/26/19 06/26/19 06/26/19 13:09 16:12 18:59 Troponin I 0.06 H* 0.06 H* 0.06 H* Diagnostic Imaging: Patient Name: CAMILO CHERRY Medical Record#: [id number] Ordering Physician: Sera Gross MD Acct.#: [id number] : 1945 Age: 74 Sex: F Location: [address] [place] [address]/TELEMETRY Exam Date: 06/26/191699 ADM Status: ADM IN Order Information: CHEST AP OR PORT Accession Number: [id number] CPT: 19484 Indication: Chest pain. Comparison: April 26, 2015 Technique: Upright AP 2006 hours Report: No focal pulmonary lesion, compelling alveolar consolidation, pleural effusion, pneumothorax. Negative for cardiomegaly. Unremarkable central pulmonary vasculature. Mildly tortuous thoracic aorta. IMPRESSION: #. No evidence for acute intrathoracic disease. <Electronically signed by Jose A Fiore MD in OV> 06/27/19830 Dictated By: Jose A Fiore MD Dictated Date/Time: 06/27/19828 Transcribed Date/Time: 06/27/19828 EKG Data: ekg today nsr 60 bpm, inferior < [address] elevation wtih st depression v2/v3. On repeat ekg st changes essentially normalized with inferior t wave changes. Findings are new since 04/26/2019 Assessment/Plan 74 year old woman admitted with unstable angina, ACS stabilized with medical management. On Xarelto for PE hx, negative procoagulant work up in past by heme per patient. Comorbidities of RA, obese, distant smoking. On for echo in AM Saturday Will schedule for Cath Saturday. Continue with lovenox while Xarelto washes out. Continue Plavix, ASA Continue with Statin for mild dyslipidemia w/ACS. Continue Isordil for vasodilation. I am adding ACEI for HTN. Cause with age and tobacco use history is most likely unstable plaque of atherosclerotic coronary artery disease although I think other pathology with this presentation is possible such as vasospasm on non-obstructive plaque or even stress cardiomyopathy is possible. Cardiac catheterization with intent for revascularization recommended. Risks, benefits and alternatives discussed and patient wishes to proceed. Agree with Dr Walker's recommendation: if PCI is ultimately performed I think xarelto 15 mg po daily with plavix 75 mg po daily and as short of aspirin course as possible would be reasonable.
[2019-06-27] MEDS: Acetaminophen TAB* 325 MG PO PRN ×2 (13:06→22:00)
--- NOTE | 2019-06-27 15:14 | PN ---
Subjective Date of Service: 06/27/19 Interval History: HOSPITALIST PROGRESS NOTE Patient seen and examined at bedside. Care reviewed and d/w Harshad Johnson RN. She feels well today, no further episodes of chest pain. Family History: Unchanged from Admission Social History: Unchanged from Admission Past Medical History: Unchanged from Admission Objective Active Medications: Acetaminophen (Tylenol Tab*) 650 mg PO Q6H PRN PRN Reason: MILD PAIN or TEMP > 100.4 Last Admin: 06/27/19 13:06 Dose: 650 mg Aspirin (Aspirin Ec Tab*) 81 mg PO DAILY [facility] Last Admin: 06/27/19 10:24 Dose: 81 mg Atorvastatin Calcium (Lipitor*) 80 mg PO 2100 [facility] Last Admin: 06/26/19 21:29 Dose: 80 mg Clopidogrel Bisulfate (Plavix Tab*) 75 mg PO DAILY [facility] Last Admin: 06/27/19 10:24 Dose: 75 mg Enoxaparin Sodium (Lovenox(*)) 80 mg SUBCUT Q12H [facility] Isosorbide Dinitrate (Isordil Tab*) 10 mg PO QID [facility] Last Admin: 06/27/19 13:06 Dose: 10 mg Lisinopril (Prinivil Tab*) 5 mg PO DAILY [facility] Melatonin (Melatonin) 9 mg PO DAILY PRN PRN Reason: SLEEP Last Admin: 06/26/19 23:34 Dose: 9 mg Vital Signs - 8 hr 06/27/19 06/27/19 07:15 08:00 Temperature 97.5 F Pulse Rate 56 Respiratory 16 16 Rate Blood Pressure 141/53 (mmHg) O2 Sat by Pulse 95 Oximetry Oxygen Devices in Use Now: None Appearance: Pleasant elderly lady lying in bed in [facility]. Eyes: No Scleral Icterus Ears/Nose/Mouth/Throat: Mucous Membranes Moist Neck: Trachea Midline Respiratory: Symmetrical Chest Expansion and Respiratory Effort, Clear to Auscultation Cardiovascular: NL Sounds; No Murmurs; No JVD, RRR Neurological: Alert and Oriented x 3, NL Muscle Strength and Tone Result Diagrams: 06/26/19 13:09 06/26/19 13:09 Assess/Plan/Problems-Billing Assessment: Mrs Contreras is a 74yo F with PMH of RA, GERD, recurrent PE, who presented to ED with c/o exertional chest pain, near syncope, diaphoresis, found to have ACS. - Patient Problems (1) ACS (acute coronary syndrome) Comment: - Cardiology consult appreciated. - Echocardiogram. - Continue Aspirin, Plavix, Lovenox, Isordil, and Lisinopril. (2) Hx pulmonary embolism Comment: - Continue Lovenox. - If stent needed, plan to treat with Xarelto 15mg plus DAPT. (3) Rheumatoid arthritis Comment: - Resume MTX on discharge. (4) DVT prophylaxis Comment: - Lovenox. (5) Full code status Status and Disposition: Inpatient.
[2019-06-27] MEDS: Atorvastatin* 80 MG TAB PO SCH (21:20)
[2019-06-27] MEDS: Enoxaparin(*) 80 MG/0.8 ML SYR SUBCUT SCH (21:20)
[2019-06-27] MEDS: Lisinopril TAB* 5 MG PO SCH (22:01)
[2019-06-27] MEDS: Melatonin 3 MG TAB PO PRN (22:01)
[2019-06-28] MEDS: Isosorbide Dinitrate TAB* 10 MG PO SCH ×4 (08:28→20:43)
[2019-06-28] MEDS: Lisinopril TAB* 5 MG PO SCH (08:28)
[2019-06-28] MEDS: Clopidogrel TAB* 75 MG PO SCH (08:28)
[2019-06-28] MEDS: Enoxaparin(*) 80 MG/0.8 ML SYR SUBCUT SCH ×2 (08:28→20:43)
[2019-06-28] MEDS: Aspirin EC TAB* 81 MG TAB.EC PO SCH (08:28)
[2019-06-28] MEDS ORDERED: Temazepam CAP* 15 MG PO PRN (10:21)
--- NOTE | 2019-06-28 13:20 | PN ---
Subjective Date of Service: 06/28/19 Interval History: HOSPITALIST PROGRESS NOTE Patient seen and examined at bedside. Care reviewed and d/w Harshad Johnson RN. She had a brief (a few seconds) episode of chest pain, similar to her prior ones. She associates it with anxiety related to her cardiac cath tomorrow. Denies dyspnea or other complaints. Family History: Unchanged from Admission Social History: Unchanged from Admission Past Medical History: Unchanged from Admission Objective Active Medications: Acetaminophen (Tylenol Tab*) 650 mg PO Q6H PRN PRN Reason: MILD PAIN or TEMP > 100.4 Last Admin: 06/27/19 22:00 Dose: 650 mg Aspirin (Aspirin Ec Tab*) 81 mg PO DAILY [facility] Last Admin: 06/28/19 08:28 Dose: 81 mg Atorvastatin Calcium (Lipitor*) 80 mg PO 2100 [facility] Last Admin: 06/27/19 21:20 Dose: 80 mg Clopidogrel Bisulfate (Plavix Tab*) 75 mg PO DAILY [facility] Last Admin: 06/28/19 08:28 Dose: 75 mg Enoxaparin Sodium (Lovenox(*)) 80 mg SUBCUT Q12H [facility] Last Admin: 06/28/19 08:28 Dose: 80 mg Isosorbide Dinitrate (Isordil Tab*) 10 mg PO QID [facility] Last Admin: 06/28/19 08:28 Dose: 10 mg Lisinopril (Prinivil Tab*) 5 mg PO DAILY [facility] Last Admin: 06/28/19 08:28 Dose: 5 mg Melatonin (Melatonin) 9 mg PO DAILY PRN PRN Reason: SLEEP Last Admin: 06/27/19 22:01 Dose: 9 mg Temazepam (Restoril Cap*) 15 mg PO BEDTIME PRN PRN Reason: INSOMNIA Vital Signs - 8 hr 06/28/19 06/28/19 07:15 07:56 Temperature 97.6 F Pulse Rate 52 Respiratory 16 18 Rate Blood Pressure 143/54 (mmHg) O2 Sat by Pulse 98 Oximetry Oxygen Devices in Use Now: None Appearance: Pleasant elderly lady sitting up in bed in NAD. Eyes: No Scleral Icterus Ears/Nose/Mouth/Throat: Mucous Membranes Moist Neck: Trachea Midline Respiratory: Symmetrical Chest Expansion and Respiratory Effort, Clear to Auscultation Cardiovascular: RRR - Normal S1 and S2 Neurological: Alert and Oriented x 3, NL Muscle Strength and Tone Result Diagrams: 06/26/19 13:09 06/26/19 13:09 Assess/Plan/Problems-Billing Assessment: Mrs Contreras is a 74yo F with PMH of RA, GERD, recurrent PE, who presented to ED with c/o exertional chest pain, near syncope, diaphoresis, found to have ACS. - Patient Problems (1) ACS (acute coronary syndrome) Comment: - Cardiology consult appreciated. - Awaiting echocardiogram. - Continue Aspirin, Plavix, Lovenox, Isordil, and Lisinopril. - Plan for cardiac cath in AM. (2) Hx pulmonary embolism Comment: - Continue Lovenox. - If stent needed, plan to treat with Xarelto 15mg plus DAPT. (3) Rheumatoid arthritis Comment: - Resume MTX on discharge. (4) DVT prophylaxis Comment: - Lovenox. (5) Full code status Status and Disposition: Inpatient.
[2019-06-28] MEDS: Acetaminophen TAB* 325 MG PO PRN (14:43)
--- NOTE | 2019-06-28 17:40 | PN ---
Subjective Date of Service: 06/28/19 - CC: CP Interval History: Camilo Cherry is a 74 year old woman with a 1 month hx chest discomfort radiating across both shoulders associated with b/l jaw ache brought on by emotional stress. The day of admission she additionally had a near syncopal event (walking and angina at the time). Recurrent chest and neck discomfort this AM with some stress regarding upcoming testing. No c/o at the time of my visit. Medications Active Medications: Acetaminophen (Tylenol Tab*) 650 mg PO Q6H PRN PRN Reason: MILD PAIN or TEMP > 100.4 Last Admin: 06/28/19 14:43 Dose: 650 mg Aspirin (Aspirin Ec Tab*) 81 mg PO DAILY [facility] Last Admin: 06/28/19 08:28 Dose: 81 mg Atorvastatin Calcium (Lipitor*) 80 mg PO 2100 [facility] Last Admin: 06/27/19 21:20 Dose: 80 mg Clopidogrel Bisulfate (Plavix Tab*) 75 mg PO DAILY [facility] Last Admin: 06/28/19 08:28 Dose: 75 mg Enoxaparin Sodium (Lovenox(*)) 80 mg SUBCUT Q12H [facility] Last Admin: 06/28/19 08:28 Dose: 80 mg Isosorbide Dinitrate (Isordil Tab*) 10 mg PO QID [facility] Last Admin: 06/28/19 17:31 Dose: 10 mg Lisinopril (Prinivil Tab*) 5 mg PO DAILY [facility] Last Admin: 06/28/19 08:28 Dose: 5 mg Melatonin (Melatonin) 9 mg PO DAILY PRN PRN Reason: SLEEP Last Admin: 06/27/19 22:01 Dose: 9 mg Temazepam (Restoril Cap*) 15 mg PO BEDTIME PRN PRN Reason: INSOMNIA Objective Vital Signs: Temp Pulse Resp BP Pulse Ox 97.4 F 61 16 133/52 97 06/28/19 15:15 06/28/19 15:15 06/28/19 15:15 06/28/19 15:15 06/28/19 15:15 Oxygen Devices in Use Now: None Appearance: nad, pleasant, lying in bed, quite overweight. Eyes: No Scleral Icterus, PERRLA Ears/Nose/Mouth/Throat: Clear Oropharnyx, Mucous Membranes Moist Neck: NL Appearance and Movements; NL JVP, Trachea Midline Respiratory: Symmetrical Chest Expansion and Respiratory Effort, Clear to Auscultation Cardiovascular: NL Sounds; No Murmurs; No JVD, RRR, No Edema Abdominal: NL Sounds; No Tenderness; No Distention Extremities: No Edema - strong symetrical radial and PT pulses. Skin: No Rash or Ulcers Neurological: Alert and Oriented x 3, NL Muscle Strength and Tone Lines/Tubes/Other Access: Clean, Dry and Intact Peripheral IV Laboratory Results: 06/26/19 13:09 06/26/19 13:09 INR (Anticoag Therapy) 2.04 (0.82-1.09) H 06/26/19 13:09 Total Bilirubin 0.70 mg/dL (0.2-1.0) 06/26/19 13:09 AST 13 U/L (13-39) 06/26/19 13:09 ALT 9 U/L (7-52) 06/26/19 13:09 Alkaline Phosphatase 63 U/L (34-104) 06/26/19 13:09 Total Protein 6.8 g/dL (6.4-8.9) 06/26/19 13:09 Albumin 4.1 g/dL (3.2-5.2) 06/26/19 13:09 Globulin 2.7 g/dL (2-4) 06/26/19 13:09 Albumin/Globulin Ratio 1.5 (1-3) 06/26/19 13:09 Triglycerides 72 mg/dL 06/27/19 05:56 Cholesterol 184 mg/dL 06/27/19 05:56 LDL Cholesterol 102 mg/dL 06/27/19 05:56 HDL Cholesterol 67.8 mg/dL 06/27/19 05:56 06/26/19 06/26/19 06/26/19 13:09 16:12 18:59 Troponin I 0.06 H* 0.06 H* 0.06 H* Diagnostic Imaging: Patient Name: CAMILO CHERRY Medical Record#: [id number] Ordering Physician: Sera Gross MD Acct.#: [id number] : 1945 Age: 74 Sex: F Location: [address] [place] [address]/TELEMETRY Exam Date: 06/26/19 1700 ADM Status: ADM IN Order Information: CHEST AP OR PORT Accession Number: [id number] CPT: 54272 Indication: Chest pain. Comparison: April 26, 2015 Technique: Upright AP 2006 hours Report: No focal pulmonary lesion, compelling alveolar consolidation, pleural effusion, pneumothorax. Negative for cardiomegaly. Unremarkable central pulmonary vasculature. Mildly tortuous thoracic aorta. IMPRESSION: #. No evidence for acute intrathoracic disease. <Electronically signed by Jose A Fiore MD in OV> 06/27/19830 Dictated By: Jose A Fiore MD Dictated Date/Time: 06/27/19828 Transcribed Date/Time: 06/27/19828 EKG Data: ekg today nsr 60 bpm, inferior < [address] elevation wtih st depression v2/v3. On repeat ekg st changes essentially normalized with inferior t wave changes. Findings are new since 04/26/2019 Assessment/Plan 74 year old woman admitted with unstable angina, ACS stabilized with medical management. On Xarelto for PE hx, negative procoagulant work up in past by heme per patient. Comorbidities of RA, obese, distant smoking. Will schedule for Cath Saturday. Continue with lovenox while Xarelto washes out. Continue Plavix, ASA Continue with Statin for mild dyslipidemia w/ACS. Continue Isordil for vasodilation/angina. ACEI added. CAD risks and possible vasospasm. Cardiac catheterization with intent for revascularization recommended. Risks, benefits and alternatives discussed and patient wishes to proceed. Patient's was present today for discussions. Agree with Dr Walker's recommendation: if PCI is ultimately performed I think xarelto 15 mg po daily with plavix 75 mg po daily and as short of aspirin course as possible would be reasonable.
[2019-06-28 18:29] LABS: Activated Partial Thrombo Time 40.4 seconds (26.0-38.0); INR 1.04 (0.82-1.09)
[2019-06-28 18:40] LABS: Albumin 3.6 g/dL (3.2-5.2); Albumin/Globulin Ratio 1.3 (1-3); BUN/Creatinine Ratio 26.4 (8-20); EGFR African American 61.5 (>60); EGFR Non-African American 50.8 (>60); Globulin 2.8 g/dL (2-4); Potassium 4.1 mmol/L (3.5-5.0); Total Bilirubin 0.4 mg/dL (0.2-1.0); Total Protein 6.4 g/dL (6.4-8.9)
[2019-06-28] MEDS: Atorvastatin* 80 MG TAB PO SCH (20:43)
[2019-06-28] MEDS: Melatonin 3 MG TAB PO PRN (22:44)
[2019-06-29 06:59] LABS: ABS Basophils 0.1 10^3/ul (0-0.2); ABS Eosinophils 0.2 10^3/ul (0-0.6); ABS Monocytes 0.6 10^3/ul (0-0.8); ABS Neutrophils 5.8 10^3/ul (1.5-7.7); Eosinophil % 2.5 %; Hematocrit 40 % (35-47); Hemoglobin 13.4 g/dL (12.0-16.0); Lymphocyte % 22.9 %; Mean Corpuscular HGB Conc 33 g/dL (31-36); Mean Corpuscular Hemoglobin 32 pg (27-31); Mean Corpuscular Volume 95 fL (80-97); Mean Platelet Volume 8.7 fL (7.4-10.4); Platelet Count 457 10^3/uL (150-450); Red Blood Count 4.23 10^6 /uL (3.70-4.87); Red Cell Distribution Width 14 % (10-15); White Blood Count 8.7 10^3/uL (3.5-10.8)
[2019-06-29] MEDS ORDERED: NS 0.9% 1000 ML** 1,000 ML IV SCH (07:00)
[2019-06-29 07:14] LABS: BUN/Creatinine Ratio 33.3 (8-20); Calcium 9.3 mg/dL (8.6-10.3); EGFR African American 83.9 (>60); EGFR Non-African American 69.3 (>60); Potassium 4.5 mmol/L (3.5-5.0)
[2019-06-29] MEDS: Isosorbide Dinitrate TAB* 10 MG PO SCH (09:41)
[2019-06-29] MEDS: Lisinopril TAB* 5 MG PO SCH (09:41)
[2019-06-29] MEDS: Clopidogrel TAB* 75 MG PO SCH (09:43)
[2019-06-29] MEDS: Aspirin EC TAB* 81 MG TAB.EC PO SCH (09:43)
--- NOTE | 2019-06-29 10:44 | ECHO ---
*[facility] [place] [address] Fax #: [phone] Transthoracic Echocardiogram Patient: Anahi Contreras : 1945 Study Date: 06/29/2019 Age: 74 Gender: F HR: 53 bpm Height: 62 in /157.5 cm BSA: 1.82 m^2 Weight: 177.6 lb /80.7 kg BMI: 32.6 kg/m^2 *Quality Control Analyst: * Kelli Rowland RDCS RN *Referring Physician: * Dilan Walker MD *Reading Physician: * Saulo Marlow MD Indications: Chest Pain, unspecified. History: Pulmonary Embolism. Rheumatoid arthritis. Risk factors: Former tobacco use. Obese. Conclusions Summary: - Left ventricle: Systolic function is normal. The estimated ejection fraction is 60-65%. Wall motion is normal; there are no regional wall motion abnormalities. - Right ventricle: Systolic function is normal. - Mitral valve: There is trace regurgitation. - Aortic valve: There is no evidence of stenosis. There is no significant regurgitation. - Tricuspid valve: There is trace regurgitation. - Pericardium, extracardiac: There is no pericardial effusion. - Pulmonary arteries: Systolic pressure is within the normal range, estimated to be 30 mm Hg. - Compared to study of 04/27/15, there is no change Study data: Transthoracic echocardiogram. Procedure: Transthoracic echocardiography was performed. Image quality was fair. The study was technically limited due to body habitus and smoking history. Complete 2D, spectral Doppler, and color flow Doppler. Location: Bedside. Patient status: Inpatient. Patient room number: 446-02. Rhythm: Bradycardia. PACs. Findings Left ventricle: The cavity size is mild to moderately reduced. Septal wall thickness is mildly increased. Systolic function is normal. The estimated ejection fraction is 60-65%. Wall motion is normal; there are no regional wall motion abnormalities. There is no consistent Doppler evidence of clinically significant diastolic dysfunction. Right ventricle: The cavity size is normal. Systolic function is normal. Left atrium: The atrium is normal in size. Right atrium: The atrium is normal in size. Mitral valve: The Mitral valve annulus appears calcified. The leaflets are mildly thickened. There is no evidence of stenosis. There is trace regurgitation. Aortic valve: The leaflets are mildly thickened. There is no evidence of stenosis. There is no significant regurgitation. Tricuspid valve: The valve is structurally normal. There is no evidence of stenosis. There is trace regurgitation. Pulmonic valve: Not visualized. Aorta: Aortic root: The aortic root is appears normal. Ascending aorta: The ascending aorta is not visualized. Aortic arch: The aortic arch is not dilated. Pericardium: There is no pericardial effusion. Pulmonary arteries: Not visualized. Systolic pressure is within the normal range, estimated to be 30 mm Hg. Systemic veins: Inferior vena cava: The vessel is normal in size. There is (>= 50%) respiratory change in the IVC dimension. There is a round echodense lesion measuring 1.0 cm x 0.9 cm at the entrance of the inferior vena cava into the right atrium. Measurements Left ventricle Value Ref Aortic valve Value Ref JAZMÍN, LAX (L) 2.8 cm 3.8 - 5.2 Merrill diam, ED 1.8 cm ---- ESD, LAX (L) 1.9 cm 2.2 - 3.5 Merrill diam/bsa, ED 1.0 cm/m^2 ---- FS, LAX 33 % 27 - 45 Peak v, S 1.3 m/sec ---- PW, ED 0.9 cm 0.6 - 0.9 VTI, S 30.1 cm ---- IVS/PW, ED 1.24 Mean grad, S 4.0 mm Hg ---- E', lat merrill, TDI (L) 7.9 cm/sec >=10.0 Peak grad, S 7.0 mm Hg -- -- E/e', lat merrill, 11 LVOT/AV, VTI ratio 0.79 ---- TDI E', med merrill, TDI 7.0 cm/sec >=7.0 Mitral valve Value Re f E/e', med merrill, 12 Peak E 0.84 m/sec ---- TDI Peak A 1.11 m/sec ---- E', avg, TDI 7.5 cm/sec Decel time 268 ms ---- E/e', avg, TDI 11 <=14 Peak grad, D 2.8 mm Hg -- -- Peak E/A ratio 0.8 ---- LVOT Value Ref Peak bill, S 1 m/sec Pulmonic valve Value Ref VTI, S 23.7 cm Peak v, S 0.67 m/sec ---- Mean grad, S 2 mm Hg Peak grad, S 2.0 mm Hg ---- Ventricular septum Value Ref Tricuspid valve Value Ref IVS, ED (H) 1.1 cm 0.6 - 0.9 Peak RV-RA grad, S 27 mm Hg ---- Max TR bill 2.6 m/sec ---- Right ventricle Value Ref JAZMÍN minor ax, A4C 3.3 cm 1.9 - 3.5 Aortic root Value Ref mid Root diam 2.8 cm <4.0 Pressure, S 30 mm Hg Aortic arch Value Ref Left atrium Value Ref Arch diam 2.1 cm ---- AP dim, ES 3.00 cm 2.70 - 3.80 Decending aorta Value Ref ML dim, A4C 3.5 cm Dariel peak bill 0.88 m/sec ---- SI dim, A4C 4.3 cm Vol/bsa, ES, 1-p 20 ml/m^2 11 - 40 Pulmonary artery Value Ref A4C Pressure, S 28.0 mm Hg ---- Vol/bsa, ES, A/L 27 ml/m^2 16 - 34 Inferior vena cava Value Ref Right atrium Value Ref Diam 1.7 cm ---- ML dim, ES, A4C 3.9 cm 2.6 - 4.4 SI dim, ES, A4C 4.1 cm 3.4 - 5.3 Estimated RAP 3 mm Hg Legend: (L) and (H) nazario values outside specified reference range. Prepared and electronically signed by Saulo Marlow MD 06/29/2019 10:44
--- NOTE | 2019-06-29 10:54 | PN ---
Subjective Date of Service: 06/29/19 Interval History: HOSPITALIST PROGRESS NOTE Patient seen and examined at bedside. Care reviewed and d/w Maurice Robles RN. She offers no new complaints. Anxious for cardiac cath. Family History: Unchanged from Admission Social History: Unchanged from Admission Past Medical History: Unchanged from Admission Objective Active Medications: Acetaminophen (Tylenol Tab*) 650 mg PO Q6H PRN PRN Reason: MILD PAIN or TEMP > 100.4 Last Admin: 06/28/19 14:43 Dose: 650 mg Aspirin (Aspirin Ec Tab*) 81 mg PO DAILY [facility] Last Admin: 06/29/19 09:43 Dose: 81 mg Atorvastatin Calcium (Lipitor*) 80 mg PO 2100 [facility] Last Admin: 06/28/19 20:43 Dose: 80 mg Clopidogrel Bisulfate (Plavix Tab*) 75 mg PO DAILY [facility] Last Admin: 06/29/19 09:43 Dose: 75 mg Sodium Chloride (Ns 0.9% 1000 Ml) 1,000 mls @ 100 mls/hr IV .per rate [facility] Isosorbide Dinitrate (Isordil Tab*) 10 mg PO QID [facility] Last Admin: 06/29/19 09:41 Dose: 10 mg Lisinopril (Prinivil Tab*) 5 mg PO DAILY [facility] Last Admin: 06/29/19 09:41 Dose: 5 mg Melatonin (Melatonin) 9 mg PO DAILY PRN PRN Reason: SLEEP Last Admin: 06/28/19 22:44 Dose: 9 mg Temazepam (Restoril Cap*) 15 mg PO BEDTIME PRN PRN Reason: INSOMNIA Vital Signs - 8 hr 06/29/19 06/29/19 06/29/19 03:49 07:15 08:00 Temperature 97.9 F Pulse Rate 66 56 Respiratory 16 20 20 Rate Blood Pressure 144/67 133/56 (mmHg) O2 Sat by Pulse 93 93 Oximetry Oxygen Devices in Use Now: None Appearance: Pleasant elderly lady sitting up in bed in NAD Eyes: No Scleral Icterus Ears/Nose/Mouth/Throat: Mucous Membranes Moist Neck: Trachea Midline Respiratory: Symmetrical Chest Expansion and Respiratory Effort, Clear to Auscultation Cardiovascular: RRR - Normal S1 and S2 Abdominal: NL Sounds; No Tenderness; No Distention Neurological: Alert and Oriented x 3, NL Muscle Strength and Tone Result Diagrams: 06/29/19 06:27 06/29/19 06:27 Assess/Plan/Problems-Billing Assessment: Mrs Contreras is a 74yo F with PMH of RA, GERD, recurrent PE, who presented to ED with c/o exertional chest pain, near syncope, diaphoresis, found to have ACS. - Patient Problems (1) ACS (acute coronary syndrome) Comment: - Cardiology consult appreciated. - Echocardiogram showed normal EF with no wall motion abnormalities. - Continue Aspirin, Plavix, Lovenox, Isordil, and Lisinopril. - Plan for cardiac cath today. (2) Hx pulmonary embolism Comment: - Continue Lovenox. - If stent needed, plan to treat with Xarelto 15mg plus DAPT. (3) Rheumatoid arthritis Comment: - Resume MTX on discharge. (4) DVT prophylaxis Comment: - Lovenox. (5) Full code status Status and Disposition: Inpatient.
[2019-06-29] MEDS ORDERED: diPHENhydraMINE PO* 25 MG PO PRN (11:44)
[2019-06-29] MEDS ORDERED: Diazepam TAB(*) 5 MG PO PRN (11:44)
[2019-06-29] MEDS ORDERED: Diazepam TAB(*) 5 MG ONE (12:50)
[2019-06-29] MEDS ORDERED: diPHENhydraMINE PO* 25 MG ONE (12:50)
[2019-06-29] MEDS ORDERED: VERAPAMIL 2.5 MG/ML 2 ML VIAL ** 5 mg/2 ml ONE (13:39)
[2019-06-29] MEDS ORDERED: Heparin(*) 1000 UNIT/ML 10 ML VIAL CATH LAB IV ONE (13:39)
[2019-06-29] MEDS ORDERED: Midazolam* 1 MG/ML 5 ML VIAL (5 MG) ONE (13:39)
[2019-06-29] MEDS ORDERED: fentaNYL* 50 MCG/ML 2 ML VIAL (100 MCG VIAL) ONE (13:39)
[2019-06-29] MEDS ORDERED: nitroGLYCERIN DRIP* 25,000 MCG/250 ML BTL ONE (13:40)
[2019-06-29] MEDS ORDERED: Heparin 2 UNITS/ML IVPREMIX* 2,000 ML IV ONE (13:40)
[2019-06-29] MEDS ORDERED: Lidocaine 1% INJ* 10 MG/ML 30 ML SDV ONE (13:40)
[2019-06-29] MEDS ORDERED: Iohexol 350 (CONTRAST) 200 ML MDV IV ONE ×2 (13:40→14:11)
--- NOTE | 2019-06-29 15:12 | CATH ---
"*[facility]* [address] [address] Main: [phone] [email or web address] Cardiac Catheterization Patient: Anahi Contreras : 1945 Study Date: 06/29/2019 Age: 74 Gender: F HR: Height: 62 in /157.5 cm BSA: 1.93 m^2 Weight: 181.1 lb /82.3 kg BMI: 33.2 kg/m^2 Guest Specialist: Saulo Marlow MD Ordering Physician: Hailey Titus MD Referring Physician: Hailey Titus MD, - Left coronary angiography. - Right coronary angiography. Summary: Normal Coronary Arteries. Recommendations: Patient with anginal type pain and inferior ST elevation. Suspect coronary spasm. Discharge on Aspirin and B Blockers. Follow up as out patient. History: Risk factors: Family history is significant for coronary artery disease. Medications: The patient received no antianginal therapy in the last two weeks. Labs, prior tests, procedures, and surgery: Blood tests: Troponin I (pre-procedure) of 0.06 ng/ml. Serum potassium (K) of 4.5 mEq/l. Serum sodium (Na) of 141 mEq/l. Serum creatinine (current admission) of 0.8 mg/dl. Blood urea nitrogen of 27 mg/dl. Glucose of 88 mg/dl. Platelet count of 457 th/ul. White blood cell count (WBC) of 0.01 th/ul. Red blood cell count (RBC) of 4200 th/ul. Hematocrit of 40 %. Hemoglobin (pre-procedure) of 13.4 g/dl. Study data: Study status: Cardiac cath: urgent. Location: Catheterization laboratory. Consent: The risks, benefits, and alternatives to the procedure were explained to the patient and/or their healthcare risk control field representative and written informed consent was obtained. All available pre-procedure labs were reviewed. Height: 157.5 cm. 62 in. Weight: 82.3 kg. 181.1 lb. Body surface area: 1.93 m^2. Body mass index: 33.2 kg/m^2. Procedure: 1. Initial setup. The patient was brought to the laboratory. Surface ECG leads, blood pressure measurements, and pulse oximetric signals were monitored. A baseline seven lead ECG was recorded. A time out was observed per protocol. 2. Skin preparation. The planned puncture sites were prepped and draped in the usual sterile manner. 3. Local anesthesia. 1% lidocaine was administered. 4. Local anesthesia. 1% lidocaine (1 ml) was administered. 5. Right radial artery access. A 6F [place] Slender sheath was advanced into the vessel. 6. Supplemental oxygen. Oxygen, 2 L/min was administered throughout the procedure. 7. Selective left coronary angiography. A catheter was advanced into the left coronary vessel ostium under fluoroscopic guidance. Contrast was injected. Images were obtained in multiple projections. 8. Selective right coronary angiography. A 5F AR 1 Impulse catheter was advanced into the right coronary vessel ostium under fluoroscopic guidance. Contrast was injected. Images were obtained in multiple projections. 9. Right radial artery hemostasis. Vessel closure was achieved with a Regular Vasc Band device. Study completion: Minimal estimated blood loss. All catheters inserted during the procedure were removed. There were no apparent complications. Administered medications: (Radial) Nitroglycerin, 300mcg, intra-arterially. (Radial) Verapamil, 3mg, intra-arterially. (Radial) Heparin, 3,000units, intra-arterially. VERSED (Midazolam), 2mg, IV. Fentanyl, 25mcg, IV. Aspirin, 81mg, PO. Clopidogrel (Plavix), 75mg, PO. NaCl 0.9% , infusion , at a rate of 100 ml/hr. NaCl 0.9% , 250 ml , bolus. Contrast: Omnipaque 350 50 ml (total dose). Omnipaque 350 150 ml (wasted). Radiation: Fluoroscopy dose: 56.7 cGy. Discharge: The patient tolerated the procedure well and was discharged from the lab in stable condition. Findings Coronary arteries: Left main: Normal, 0% stenosis. LAD: Normal, 0% stenosis. Left circumflex: Normal, 0% stenosis. Right coronary: Normal, 0% stenosis. Hemodynamics: + + + |Stage description |Condition 1 -| + + + |Arterial pressure s/d (m)|97/55 (73) | + + + Prepared and electronically signed by Saulo Marlow MD 06/29/2019 15:12"
[2019-06-29 16:36] VITALS: BP 148/61
--- NOTE | 2019-06-30 00:53 | DS ---
CC: Dr. Dilan Walker; Dr. Sarmiento at [facility].* DISCHARGE SUMMARY: DATE OF ADMISSION: 06/26/19 DATE OF DISCHARGE: 06/29/19 INDICATION FOR ADMISSION: Chest pain, abnormal EKG. Please see admission history and physical by Dr. Sera Ratliff and consultation by Dr. Walker for the patient's presentation. The patient had a history of rheumatoid arthritis, multiple pulmonary embolisms , previous heavy smoker, but quit at 64, who was admitted to the hospital with chest pain. Her initial EKG showed normal sinus rhythm with 0.[address] segment elevation to the inferior leads and a troponin level of 0.06. The patient was admitted to the hospital and observed over the weekend. She had no urgent issues requiring cardiac catheterization. SUMMARY OF HOSPITAL COURSE: The patient was pain-free the rest of the weekend. She had no complaints. This morning, the patient went to the cardiac catheterization lab which demonstrated no critical coronary artery disease. She did have calcification of her proximal LAD, but no other significant findings. Currently, the patient is asymptomatic and awaiting discharge. DISCHARGE MEDICATIONS: 1. Methotrexate 15 mg weekly. 2. Xarelto 20 mg a day. 3. Aspirin 81 mg a day. 4. Metoprolol tartrate 25 mg b.i.d. ALLERGIES: No known drug allergies. DISPOSITION: The patient will be discharged home. STATUS ON DISCHARGE: Stable. PHYSICAL EXAMINATION: Height is 5 feet 2 inches, weight is 181 pounds, heart rate is 63, blood pressure 148/61, temperature is afebrile at 97.2. Cardiac Exam: S1 and S2 without any murmurs, rubs, or gallops. Lungs are clear to auscultation. Extremities show no edema. She has 2+ pulses throughout. The patient is awake, alert, and oriented. LABORATORY DATA: Her CBC is within normal limits. Chemistry is within normal limits. Total cholesterol 184, LDL 102, HDL of 67. DISCHARGE MEDICATIONS: As described above. FOLLOWUP: The patient will follow up with me or Dr. Walker in 1 week. [id number]/[facility] #: [id number] [facility]USAnna
--- NOTE | 2019-07-02 08:17 | HP ---
CC: PCP; Dr. Walker HISTORY AND PHYSICAL: ADDENDUM: REVIEW OF SYSTEMS: A 14-point review of systems was performed and all the penitent negative as per the HPI. [id number]/[facility] #: [id number] [facility]
== END 2019-06-29 17:00 | disposition home or self-care (01) | DRG 191 ==
LOC: ED 12:55 → MEDTELE 16:22
PROVIDERS: ADMIT Internal Medicine; ATTEND Specialist
PROC: B211YZZ Fluoroscopy of Multiple Coronary Arteries using Other Contrast (ICD-10-PCS; principal; 2019-06-29 13:30)
DX: I24.9 Acute ischemic heart disease, unspecified (principal); R07.9 Chest pain, unspecified; M06.9 Rheumatoid arthritis, unspecified; R68.84 Jaw pain; K21.9 Gastro-esophageal reflux disease without esophagitis; E66.9 Obesity, unspecified; Z86.711 Personal history of pulmonary embolism; Z79.01 Long term (current) use of anticoagulants; Z79.1 Long term (current) use of non-steroidal anti-inflammatories (NSAID); Z79.899 Other long term (current) drug therapy; Z82.49 Family history of ischemic heart disease and other diseases of the circulatory system; Z87.891 Personal history of nicotine dependence; Z68.33 Body mass index [BMI] 33.0-33.9, adult
CPT/HCPCS: 36415; 71045; 80048; 80053; 80061; 84484; 85025; 85610; 85730; 93005; 93306; 93454; 99284; A9270-GY; J1644; J1650; J2250; J3010